=== PATIENT | male | born 1960 | race Caucasian/White ===

== ENCOUNTER 2022-10-23 17:20 | Inpatient (IN) ==
[2022-10-23 20:10] LABS: Hematocrit 44.5 % (38-53); Hemoglobin 15.1 g/dL (13.2-16.3); Mean Corpuscular Volume 88.3 fL (80-97); Mean Platelet Volume 8.2 fL (7.5-11.2); Platelet Count 305 10^3/uL (150-450); Red Blood Count 5.04 10^6/uL (4.06-5.63); Red Cell Distribution Width 13.5 % (12-17)
[2022-10-23 20:29] LABS: Albumin 4.7 g/dL (3.2-5.2); Albumin/Globulin Ratio 1.3 (1-3); C Reactive Protein 115.83 mg/L (<8.01); Calcium 9.6 mg/dL (8.6-10.3); Creatinine, Serum 1.18 mg/dL (0.67-1.17); Globulin 3.6 g/dL (2-4); Potassium 3.4 mmol/L (3.5-5.0); Total Bilirubin 0.9 mg/dL (0.2-1.0); Total Protein 8.3 g/dL (6.4-8.9); eGFR CKD-EPI 68.9 (>60)
[2022-10-23 20:39] LABS: ABS Lymphocytes 1.2 10^3/uL (1.0-4.8); ABS Monocytes 2.1 10^3/uL (0.0-1.1); ABS Neutrophils 15.7 10^3/uL (1.5-7.6); ABS Nucleated RBC 0.01 10^3/ul; Lymphocyte % 6.3 %
[2022-10-23] MEDS ORDERED: LACTATED RINGERS IV ONE (22:37)
[2022-10-24] MEDS ORDERED: Iohexol 350 (CONTRAST) 500 ML MDV IV ONE (00:35)
[2022-10-24] MEDS ORDERED: cefTRIAXone 1 gm/50 mL D5W 1 GM/50 ML BAG IV ONE (02:55)
[2022-10-24] MEDS ORDERED: Al Hydrox/Mg Hydrox/Simet LIQ 30 ML UDC PO ONE (02:58)
[2022-10-24 03:06] LABS: Urine Appearance Clear; Urine Bilirubin Negative (Negative); Urine Blood 2+ (Negative); Urine Color Yellow; Urine Glucose Negative (Negative); Urine Ketones Negative (Negative); Urine Nitrite Negative (Negative); Urine Protein 1+(30 mg/dL) (Negative); Urine Specific Gravity 1.041 (1.002-1.030); Urine Urobilinogen Positive (Negative)
[2022-10-24 03:12] LABS: Urine Bacteria 1+ (Absent); Urine Red Blood Cell 3+(>10/hpf) (Absent); Urine Squamous Epithelial Cell Present (Absent); Urine White Blood Cell Absent (Absent)
[2022-10-24] MEDS: Enoxaparin 40 MG/0.4 ML SYR SUBCUT SCH (03:43)
[2022-10-24 05:18] LABS: Hematocrit 34.9 % (38-53); Hemoglobin 12.4 g/dL (13.2-16.3); Mean Corpuscular Hemoglobin 30.9 pg (27-33); Mean Corpuscular Hgb Conc 35.5 g/dL (31-36); Mean Corpuscular Volume 87.3 fL (80-97); Mean Platelet Volume 7.9 fL (7.5-11.2); Platelet Count 234 10^3/uL (150-450); Red Blood Count 3.99 10^6/uL (4.06-5.63); Red Cell Distribution Width 13.3 % (12-17); White Blood Count 14.8 10^3/uL (3.6-10.2)
[2022-10-24 05:35] LABS: Calcium 8.2 mg/dL (8.6-10.3); Creatinine, Serum 1.03 mg/dL (0.67-1.17); Magnesium 1.6 mg/dL (1.9-2.7); Potassium 3.1 mmol/L (3.5-5.0); eGFR CKD-EPI 81.1 (>60)
[2022-10-24] MEDS ORDERED: Magnesium Sulfate IV 3 GM in NS 0.9% 100 ml BAG 100 ML IVPB ONE (05:40)
[2022-10-24 05:41] LABS: Magnesium 1.7 mg/dL (1.9-2.7)
[2022-10-24] MEDS: KCL 20 MEQ/100 ML IVPREMIX 20 MEQ/100 ML BAG IV SCH ×2 (05:42→08:40)
[2022-10-24 05:57] LABS: ABS Lymphocytes 1.1 10^3/uL (1.0-4.8); ABS Monocytes 1.7 10^3/uL (0.0-1.1); ABS Neutrophils 11.9 10^3/uL (1.5-7.6); Eosinophil % 0.2 %; Lymphocyte % 7.4 %
[2022-10-24] MEDS ORDERED: Magnesium Hydroxide LIQ 30 ML UDC PO PRN (06:04)
[2022-10-24] MEDS ORDERED: Senna TAB 8.6 mg TAB PO PRN (06:05)
[2022-10-24] MEDS ORDERED: CMCS:Desvenlafaxine 50 mg TAB ER (NF) PO SCH (09:00)
[2022-10-24] MEDS: Potassium Chlor 20 meq TAB.ER PO SCH ×2 (10:54→15:11)
[2022-10-24] MEDS: CMCS:Desvenlafaxine 50 mg TAB ER (NF) PO SCH (21:29)
[2022-10-25] MEDS: cefTRIAXone 1 gm/50 mL D5W 1 GM/50 ML BAG IV SCH (03:17)
[2022-10-25 07:33] LABS: Creatinine, Serum 1.15 mg/dL (0.67-1.17); Magnesium 2.3 mg/dL (1.9-2.7); Phosphorus 2.8 mg/dL (2.5-5.0); eGFR CKD-EPI 71.1 (>60)
[2022-10-25] MEDS: Enoxaparin 40 MG/0.4 ML SYR SUBCUT SCH (08:25)
[2022-10-25] MEDS: CMCS:Desvenlafaxine 50 mg TAB ER (NF) PO SCH (20:28)
[2022-10-26] MEDS: cefTRIAXone 1 gm/50 mL D5W 1 GM/50 ML BAG IV SCH (03:09)
[2022-10-26 06:23] LABS: ABS Basophils 0.1 10^3/uL (0.0-0.1); ABS Eosinophils 0.1 10^3/uL (0.0-0.5); ABS Monocytes 1.3 10^3/uL (0.0-1.1); ABS Neutrophils 7.3 10^3/uL (1.5-7.6); Eosinophil % 1.2 %; Hematocrit 36.6 % (38-53); Hemoglobin 12.7 g/dL (13.2-16.3); Lymphocyte % 10.4 %; Mean Corpuscular Hemoglobin 30.1 pg (27-33); Mean Corpuscular Hgb Conc 34.8 g/dL (31-36); Mean Corpuscular Volume 86.6 fL (80-97); Mean Platelet Volume 8.3 fL (7.5-11.2); Platelet Count 278 10^3/uL (150-450); Red Blood Count 4.23 10^6/uL (4.06-5.63); Red Cell Distribution Width 13.2 % (12-17); White Blood Count 9.9 10^3/uL (3.6-10.2)
[2022-10-26 06:39] LABS: Calcium 8.2 mg/dL (8.6-10.3); Creatinine, Serum 0.97 mg/dL (0.67-1.17); Potassium 3.6 mmol/L (3.5-5.0); eGFR CKD-EPI 87.2 (>60)
[2022-10-26 07:15] LABS: HIV 4th Generation Nonreactive (Nonreactive)
[2022-10-26] MEDS: Enoxaparin 40 MG/0.4 ML SYR SUBCUT SCH (07:46)
[2022-10-26 10:08] LABS: Hepatitis C Antibody Reactive (Negative)
[2022-10-26 12:34] LABS: Osmolality Serum 281 mOsm/kg (275-295)
[2022-10-26] MEDS ORDERED: Potassium Chlor 20 meq TAB.ER PO ONE (14:20)
[2022-10-26] MEDS ORDERED: NS 0.9% 500 ml BAG 500 ML IV SCH (15:00)
[2022-10-26] MEDS: CMCS:Desvenlafaxine 50 mg TAB ER (NF) PO SCH (22:01)
[2022-10-27] MEDS: cefTRIAXone 1 gm/50 mL D5W 1 GM/50 ML BAG IV SCH (01:39)
[2022-10-27 06:21] LABS: Hematocrit 36.1 % (38-53); Hemoglobin 12.7 g/dL (13.2-16.3); Mean Corpuscular Hemoglobin 29.8 pg (27-33); Mean Corpuscular Hgb Conc 35.1 g/dL (31-36); Mean Platelet Volume 8.2 fL (7.5-11.2); Platelet Count 309 10^3/uL (150-450); Red Blood Count 4.25 10^6/uL (4.06-5.63)
[2022-10-27 06:36] LABS: Calcium 8.2 mg/dL (8.6-10.3); Creatinine, Serum 0.87 mg/dL (0.67-1.17); Magnesium 2.1 mg/dL (1.9-2.7); Potassium 3.6 mmol/L (3.5-5.0); eGFR CKD-EPI 96.4 (>60)
[2022-10-27] MEDS: Enoxaparin 40 MG/0.4 ML SYR SUBCUT SCH (11:35)
[2022-10-27 13:54] VITALS: BP 132/84
[2022-10-28] MEDS ORDERED: cefTRIAXone 1 GM Q24H (ADVAN) IVPB SCH (03:00)
[2022-10-28 16:29] LABS: Anaplasma phagocytophilum Negative (Negative); B. miyamotoi PCR, B Negative (Negative); Babesia divergens/MO-1 Negative (Negative); Babesia ducani Negative (Negative); Ehrlichia chaffeensis Negative (Negative); Ehrlichia ewingii/canis Negative (Negative); Ehrlichia muris eauclairensis Negative (Negative)
== END 2022-10-27 16:30 | disposition home or self-care (01) | DRG 871 ==
LOC: ED 17:20 → EDHOLD 17:20 → SUATTDRO 10-24 03:20 → MED 10-24 13:12
PROVIDERS: ADMIT Student in an Organized Health Care Education/Training Program; ATTEND Internal Medicine